=== PATIENT | male | born 1960 | race Caucasian/White ===

== ENCOUNTER 2018-12-17 02:37 | Emergency (ER) | payer SELFPAY ==
[2018-12-17] MEDS ORDERED: METOPROLOL TARTRATE 100 MG TABLET PO ONE (02:53)
--- NOTE | 2018-12-17 02:59 | ER Document Report ---
ED Cardiac - General Stated Complaint: CHEST PAIN Time Seen by Provider: 12/17/18 02:45 Mode of Arrival: Ambulatory Information source: Patient Notes: Chief complaint: Palpitation History of complain:( obtained from----patient) 58 years old male with a history of SVT in the past, cirrhosis of the liver secondary to medication, recently has varices and bleeding. Previously he was treated with metoprolol 150 mg a day, a month ago due to varices which was discontinued, started on propranolol 10 mg 3 times a day. Today started having rapid heartbeat, sensation of palpitation. Called the EMS and EMS cardioverted him and brought him to the ED with a controlled heart rate of 107 bpm. Denies any precordial pain denies any left arm numbness tingling sensation nausea vomiting. Currently feeling comfortable Denies any smoking or caffeine-containing drinks. Denies any physical activity. Onset: Sudden Duration: Improved Severity: Severe Quality: As above Context: As above Exacerbating factor and relieving factors: None REVIEW OF SYSTEMS: CONSTITUTIONAL : Denies fever, chills, or sweats. Denies recent illness. EENT: Denies eye, ear, throat, or mouth pain or symptoms. Denies nasal or sinus congestion or discharge. Denies throat, tongue, or mouth swelling or difficulty swallowing. CARDIOVASCULAR: Denies chest pain. Denies palpitations or racing or irregular heart beat. Denies ankle edema. RESPIRATORY: Denies cough, cold, or chest congestion. Denies shortness of breath, difficulty breathing, or wheezing. GASTROINTESTINAL: Denies distention. Denies nausea, vomiting, or diarrhea. Denies blood in vomitus, stools, or per rectum. Denies black, tarry stools. Denies constipation. GENITOURINARY: Denies difficulty urinating, painful urination, burning, frequency, blood in urine, or discharge. FEMALE GENITOURINARY: Denies vaginal bleeding, heavy or abnormal periods, irregular periods. Denies vaginal discharge or odor. MUSCULOSKELETAL: Denies back or neck pain or stiffness. Denies joint pain or swelling. SKIN: Denies rash, lesions or sores. HEMATOLOGIC : Denies easy bruising or bleeding. LYMPHATIC: Denies swollen, enlarged glands. NEUROLOGICAL: Denies confusion or altered mental status. Denies passing out or loss of consciousness. Denies dizziness or lightheadedness. Denies headache. Denies weakness or paralysis or loss of use of either side. Denies problems with gait or speech. Denies sensory loss, numbness, or tingling. Denies seizures. PSYCHIATRIC: Denies anxiety or stress. Denies depression, suicidal ideation, or homicidal ideation. ALL OTHER SYSTEMS REVIEWED AND NEGATIVE. PHYSICAL EXAMINATION: GENERAL: Well-appearing, well-nourished and in no acute distress. HEAD: Atraumatic, normocephalic. EYES: Pupils equal round and reactive to light, extraocular movements intact, conjunctiva are normal. ENT: Nares patent, oropharynx clear without exudates. Moist mucous membranes. NECK: Normal range of motion, supple without lymphadenopathy LUNGS: Breath sounds clear to auscultation bilaterally and equal. No wheezes rales or rhonchi. HEART: Regular rate and rhythm without murmurs ABDOMEN: Soft, nontender, nondistended abdomen. No guarding, no rebound. No masses appreciated. Examination of genitals-deferred Musculoskeletal: Normal range of motion, no pitting or edema. No cyanosis. NEUROLOGICAL: Cranial nerves grossly intact. Normal speech, normal gait. Normal sensory, motor exams PSYCH: Normal mood, normal affect. SKIN: Warm, Dry, normal turgor, no rashes or lesions noted. Dictation was performed using [employer] voice recognition software TRAVEL OUTSIDE OF THE [place] IN LAST 30 DAYS: No - HPI Notes: Dictated - Related Data Allergies/Adverse Reactions: No Known Allergies Allergy (Unverified 12/17/18 02:54) Past Medical History - Social History Smoking Status: Never Smoker Frequency of alcohol use: Occasional Drug Abuse: None Lives with: Family Family History: Reviewed & Not Pertinent Review of Systems - Review of Systems Notes: Dictated Physical Exam - Vital signs Vitals: Resp Pulse Ox 16 96 12/17/18 02:40 12/17/18 02:40 - Notes Notes: Dictated Course - Re-evaluation Re-evalutation: 12/17/18 05:56 Patient did not want to wait for the second troponin signed AMA and went - Vital Signs Vital signs: Temp Pulse Resp BP Pulse Ox 11 L 121/84 100 12/17/18 03:01 12/17/18 03:01 12/17/18 03:48 - Laboratory Result Diagrams: 12/17/18 02:59 12/17/18 02:59 Laboratory results interpreted by me: 12/17/18 12/17/18 02:59 02:59 Hgb 11.0 L Hct 35.2 L MCV 76 L MCH 23.7 L MCHC 31.2 L RDW 18.0 H Plt Count 95 L Glucose 215 H AST 63 H - EKG Interpretation by Me Rate: Tachycardia - Sinus tach at 107 bpm normal axis no acute ST-T wave changes. Discharge - Discharge Clinical Impression: SVT (supraventricular tachycardia) Condition: Fair Disposition: AGAINST MEDICAL ADVICE
[2018-12-17 03:12] LABS: ABSOLUTE EOSINOPHILS # (AUTO) 0.2 10^3/uL (0.0-0.6); ABSOLUTE LYMPHOCYTES (AUTO) 1.3 10^3/uL (0.5-4.7); ABSOLUTE MONOCYTES (AUTO) 0.3 10^3/uL (0.1-1.4); ABSOLUTE NEUT (AUTO) 2.4 10^3/uL (1.7-8.2); BASOPHILS % (AUTO) 0.5 % (0-2); EOSINOPHILS % (AUTO) 3.6 % (0-6); HEMATOCRIT 35.2 % (37.9-51.0); LYMPHOCYTES % (AUTO) 31.5 % (13-45); MEAN CORPUSCULAR HEMOGLOBIN 23.7 pg (27.0-33.4); MEAN CORPUSCULAR HGB CONC 31.2 g/dL (32.0-36.0); MEAN CORPUSCULAR VOLUME 76 fl (80-97); MONOCYTES % (AUTO) 8.1 % (3-13); RED BLOOD COUNT 4.65 10^6/uL (4.35-5.55); SEGMENTED NEUTROPHILS % (AUTO) 56.3 % (42-78); TOTAL CELLS COUNTED % (AUTO) 100 %; WHITE BLOOD COUNT 4.2 10^3/uL (4.0-10.5)
[2018-12-17 03:25] LABS: ALBUMIN 4.2 g/dL (3.5-5.0); ALKALINE PHOSPHATASE 117 U/L (38-126); ANION GAP 14 (5-19); ASPARTATE AMINO TRANSFERASE 63 U/L (17-59); BILIRUBIN,DIRECT 0.2 mg/dL (0.0-0.4); BILIRUBIN,TOTAL 0.8 mg/dL (0.2-1.3); BLOOD UREA NITROGEN 9 mg/dL (7-20); CALCIUM 9.3 mg/dL (8.4-10.2); CARBON DIOXIDE 23 mmol/L (22-30); CHLORIDE 103 mmol/L (98-107); CREATINE KINASE 100 U/L (55-170); GLUCOSE 215 mg/dL (75-110); POTASSIUM 4.4 mmol/L (3.6-5.0); TOTAL PROTEIN 7.8 g/dL (6.3-8.2)
[2018-12-17 03:29] LABS: PLATELET COUNT 95 10^3/uL (150-450)
[2018-12-17 03:41] LABS: CREATINE KINASE MB 1.48 ng/mL (<4.55)
[2018-12-17 03:44] LABS: TROPONIN I < 0.012 ng/mL
[2018-12-17 03:52] VITALS: BP 121/84
--- NOTE | 2018-12-17 04:20 | RADIOLOGY REPORT (SQ) ---
EXAM DESCRIPTION: XR CHEST 1 VIEW COMPLETED DATE/TME: 12/17/2018 02:53 CLINICAL HISTORY: 58 years, Male, Chest pain COMPARISON: None. NUMBER OF VIEWS: 1 TECHNIQUE: Portable chest LIMITATIONS: None. FINDINGS: Heart size is normal. Lungs are clear. No pneumothorax IMPRESSION: Negative chest copyright 2010 [employer]- All Rights Reserved
--- NOTE | 2018-12-17 10:19 | EKG REPORT ---
SEVERITY:- BORDERLINE ECG - SINUS TACHYCARDIA BORDERLINE PROLONGED QT INTERVAL : Confirmed by: Geovanna Holder MD 17-Dec-2018 10:19:16
== END 2018-12-17 07:00 | disposition left against medical advice (07) ==
LOC: ER 02:37
DX: I47.1 Supraventricular tachycardia (principal); R07.9 Chest pain, unspecified; R00.2 Palpitations
CPT/HCPCS: 36415; 71045; 80053; 82550; 82553; 84484; 85025; 93005; 93010; 99285